=== PATIENT | female | born 2005 | race African-American/Black ===

== ENCOUNTER 2025-03-26 17:29 | Emergency (ER) | payer SELFPAY ==
[2025-03-26] MEDS ORDERED: Tetracaine 0.5% PF 4 ML BOT ONE (17:53)
[2025-03-26] MEDS ORDERED: Fluorescein Opthalmic Strip ONE (17:53)
== END 2025-03-26 18:16 | disposition home or self-care (01) ==
LOC: MADERS 17:29
DX: H00.12 Chalazion right lower eyelid (principal)
CPT/HCPCS: 99283